=== PATIENT | female | born 1950 | race Caucasian/White ===

== ENCOUNTER → 2024-03-05 08:14 | Outpatient (REF) | payer OTHER, SELFPAY | LOC: RCS 08:14 | PROVIDERS: ATTENDING PHYSICIAN Internal Medicine Pulmonary Disease; FAMILY PHYSICIAN Physician Assistant Medical | DX: J21.9 Acute bronchiolitis, unspecified (principal) | CPT/HCPCS: 71046; 93005 ==

== ENCOUNTER 2024-05-04 09:30 | Outpatient (RCR) | payer OTHER, SELFPAY | END 2024-05-05 09:07 | disposition home or self-care (01) | LOC: PURB 09:30 | PROVIDERS: ATTENDING PHYSICIAN Internal Medicine Pulmonary Disease; FAMILY PHYSICIAN Physician Assistant Medical | DX: J21.9 Acute bronchiolitis, unspecified (principal) | CPT/HCPCS: G0237; G0239 ==

== ENCOUNTER 2024-06-03 09:30 | Outpatient (RCR) | payer OTHER, SELFPAY | END 2024-06-04 09:00 | disposition home or self-care (01) | LOC: PURB 09:30 | PROVIDERS: ATTENDING PHYSICIAN Internal Medicine Pulmonary Disease; FAMILY PHYSICIAN Physician Assistant Medical | DX: J45.50 Severe persistent asthma, uncomplicated (principal) | CPT/HCPCS: G0239 ==

== ENCOUNTER 2024-06-22 09:30 | Outpatient (RCR) | payer OTHER, SELFPAY | END 2024-06-23 10:49 | disposition home or self-care (01) | LOC: PURB 09:30 | PROVIDERS: ATTENDING PHYSICIAN Internal Medicine Pulmonary Disease; FAMILY PHYSICIAN Physician Assistant Medical | DX: J45.909 Unspecified asthma, uncomplicated (principal); J47.9 Bronchiectasis, uncomplicated | CPT/HCPCS: G0239 ==

== ENCOUNTER 2025-03-25 09:13 | Emergency (ER) | payer OTHER, SELFPAY ==
[2025-03-25 09:15] VITALS: BP 163/104
[2025-03-25 09:25] VITALS: BMI 36.8
--- NOTE | 2025-03-25 09:30 | EDRN ---
Wet saline dressing placed over wound.
--- NOTE | 2025-03-25 09:36 | EDRN ---
Wound extensively irrigated w/ saline at this time.
--- NOTE | 2025-03-25 09:37 | EDRN ---
Anam Salinas PA in room w/pt at this time.
--- NOTE | 2025-03-25 09:51 | ED.SKININJ ---
HPI-Injury
General
Chief Complaint: Bite
Time Seen by Provider: 03/25/25 09:29
History of Present Illness-Injury
Initial Injury comments:
75-year-old female presents to the emergency department ration of a laceration to the right wrist bitten by her dog. Dog is up-to-date on vaccinations. Patient's last tetanus was 2020. Denies any distal paresthesias
Review of Systems
Review of Systems
Allergies reviewed?: Yes
All Other Systems: ROS reviewed and negative except as documented in HPI and ROS
Phy Exam
Physical Exam
Physical Exam:
GEN: Well appearing, NAD, WDWN
HEENT: Oral mucosa moist, no scleral icterus
Cardiac: Regular rate
Lung: No respiratory distress, no tachypnea
MSK: No gross deformity or injuries
Skin: Good color, no pallor or jaundice, stellate laceration to the right wrist measuring approximately 3.5 cm, numerous devitalized skin flaps, minimal active bleeding
Neuro: AO x3, moves all extremities freely, sensation to the right fingers intact
Psych: Calm, cooperative
Course
Vital Signs
Initial and Last Documented VS:
Initial Vital Signs
Temp Pulse Resp BP Pulse Ox
98.3 F 118 20 163/104 97
03/25/25 09:15 03/25/25 09:15 03/25/25 09:15 03/25/25 09:15 03/25/25 09:15
Last Documented Vital Signs
Temp Pulse Resp BP Pulse Ox
98.3 F 118 20 163/104 97
03/25/25 09:15 03/25/25 09:15 03/25/25 09:15 03/25/25 09:15 03/25/25 09:52
Procedures
Laceration Closure
Right wrist:
Status of Wound: clean
Size of Wound in cm: 3
Description of Wound Edges: ragged and flap-poorly vascularized
Preparation: cleaned with saline
Anesthesia: 1% Lidocaine
Wound exploration: explored to base- no FB
Type of Closure: single layer closure
Skin Closure Material: 5-0 prolene
Number of sutures: 3
MDM/Problems Addressed
MDM/Problems Addressed:
3 sutures placed for loose approximation of the wound, will start on Augmentin for infection prophylaxis, no indication for rabies postexposure prophylaxis
*Pulse Oximetry
SaO2: 97
Oxygen Mode of Delivery: Room air
*Critical Care Note
Total Time (30-74mins, 75-104mins- exclusive of procedures): Not Applicable
ED Attending Note
-
Portions of this chart may have been created with voice recognition software.� Occasional wrong word or��sound alike� substitutions may have occurred due to the inherent limitations of voice recognition software.
Discharge Plan
Departure
Patient Disposition: Home (Routine Discharge)
Date of Disposition: 03/25/25
Time of Disposition: 09:51
Patient with high blood pressure during this ER visit?: No
Discharge Problem:
Dog bite of right wrist
Instructions: Laceration Repair With Stitches (DC)
Prescriptions:
New
amoxicillin-pot clavulanate 875-125 mg tablet
1 tab PO BID 5 Days Qty: 10 0RF
Activity Restrictions/Additional Instructions:
Keep dry for 24 hours then gentle soap and water washing each day
Change dressing daily
Follow up with your primary doctor in 10 days for suture removal
Interventions
Interventions:
*Risk Screen - Suicide Last Done: 03/25/25 09:15
*General Assessment Last Done: 03/25/25 09:23
*Neglect/Abuse Screening Last Done: 03/25/25 09:15
*ED- Fall Risk Assessment Last Done: 03/25/25 09:23
*ED COVID-19 Vaccine History Last Done: 03/25/25 09:23
*Nursing Disposition Last Done: 03/25/25 10:05
ED-Skin Assessment Last Done: 03/25/25 09:27
Discharge Date and Time
Discharge Date/Time: 03/25/25 10:06
Print Language: GHANAIAN
== END 2025-03-25 10:06 | disposition home or self-care (01) ==
LOC: EMR 09:13
PROVIDERS: EMERGENCY PHYSICIAN Emergency Medicine; FAMILY PHYSICIAN Physician Assistant Medical
DX: S61.551A Open bite of right wrist, initial encounter (principal); W54.0XXA Bitten by dog, initial encounter
CPT/HCPCS: 99282; 12002